=== PATIENT | female | born 1980 | race Caucasian/White ===

== ENCOUNTER 2023-01-23 21:59 | Emergency (ER) | payer OTHER, MEDICAID, SELFPAY ==
[2023-01-23] VITALS (14 sets, daily range): BP systolic 131–145; BP diastolic 80–95; PULSE 65–93; RESP 15–23; TEMP 36.9; O2SAT 93–100; BMI 29.3
--- NOTE | 2023-01-23 22:15 | ECG_ITS ---
The [facility] Test Date: 2023-01-23 Pat Name: TRINO MESSER Department: Room: - Gender: Female Return To Factory Clerk: : 1980 Requested By: [id number] Order Number: [id number] Reading MD: RIGOBERTO NERI Measurements Intervals Chase Rate: 66 P: 33 PA: 118 QRS: 43 QRSD: 90 T: 34 QT: 430 QTc: 443 Interpretive Statements 1100 Sinus rhythm 1108 Marked sinus arrhythmia 2210 Short PA interval 9150 abnormal ECG No previous ECG available for comparison Electronically Signed On 01-24-2023 7:08:10 EDT by RIGOBERTO NERI
--- NOTE | 2023-01-23 22:23 | PC.NURSE ---
pt states that she was working out tonight like she always does and then showered. pt states she got a sudden headache and is the worse headache she has ever had. pt states that she has hx of migraines but this doens't feel like previous ones. pt took 800mg of motrin 30 minutes ago with no relief. pt states normally when she takes the motrin she has relief. pt has nausea and is vomiting on arrival. pt states pain is all over head and burning sensation down spine
--- NOTE | 2023-01-23 22:25 | ED_ITS ---
HPI - Headache General Chief Complaint: Nausea/Vomiting/Diarrhea Stated Complaint: FLU LIKE SYMPTOMS Time Seen by Provider: 01/23/23 22:18 Source: patient Mode of arrival: Wheelchair Limitations: no limitations History of Present Illness HPI Narrative: past history of migraine headaches. Usually headache 5 nights per week. States she treats with flexeril and motrin. She also does see a chiropractor. States typical migraine starts at the back of her neck and then extends across her head. States she had worked out tonight and took a shower. Developed a headache all over and a burning pain down her neck. Not her typical migraine. Has vomited. States this is unlike any past headaches. No fever or extremity weakness. MD elicited complaint: Reports headache Related Data Home Medications Medication Instructions Recorded Confirmed bupropion HCl 150 mg tablet,12 hr 150 mg PO DAILY 01/23/23 01/23/23 sustained-release Previous Rx's Medication Instructions Recorded famotidine 20 mg tablet (Pepcid) 20 mg PO BID #10 tabs 01/26/23 meloxicam 15 mg tablet 15 mg PO DAILY PRN pain #10 tabs 01/26/23 prednisone 20 mg tablet 40 mg PO DAILY 5 days #10 tabs 01/26/23 Allergies Allergy/AdvReac Type Severity Reaction Status Date / Time No Known Drug Allergies Allergy Verified 01/26/23 12:46 Review of Systems ROS Status of ROS 10 or more systems reviewed and unremarkable except as noted in history and below [facility] Social History Smoking status: Never smoker Exam Constitutional Vital Signs, click to edit/add: Last Vital Signs Temp 98.5 F 01/23/23 22:03 Pulse 74 01/24/23 02:10 Resp 17 01/24/23 02:10 BP 119/73 01/24/23 03:28 Pulse Ox 96 01/24/23 03:30 O2 Del Method Room Air 01/23/23 22:03 Common normals: no apparent distress, oriented x3, healthy appearing, alert and well nourished Eye Common normals: PERRL, EOMs intact bilaterally, conjunctivae normal and fundi normal bilaterally (no photosensitivity) Respiratory Common normals: normal respiratory effort, no retractions, no use of accessory muscles and clear to auscultation bilaterally Cardio Common normals: no JVD, regular rate, regular rhythm, S1 normal heart sound and S2 normal heart sound Extremity Common normals: normal to inspection and full ROM Neuro Common normals: oriented x3, CN's II-XII intact bilaterally, moves all extremities, no focal motor deficits and no sensory deficits noted Psych Appearance: grossly normal Course Vital Signs Vital signs: Vital Signs Temperature 98.5 F 01/23/23 22:03 Pulse Rate 93 H 01/23/23 22:03 Respiratory Rate 20 01/23/23 22:03 Blood Pressure 138/92 H 01/23/23 22:03 Pulse Oximetry 98 01/23/23 22:03 Oxygen Delivery Method Room Air 01/23/23 22:03 Temperature 98.5 F 01/23/23 22:03 Pulse Rate 74 01/24/23 02:10 Respiratory Rate 17 01/24/23 02:10 Blood Pressure 119/73 01/24/23 03:28 Pulse Oximetry 96 01/24/23 03:30 Oxygen Delivery Method Room Air 01/23/23 22:03 MDM - Headache MDM Narrative Medical decision making narrative: patient presents with acute onset of headache unlike her typical migraine. CT brain neg. Normal neuro exam 2 LPs performed as above Discussed these findings with carbon cutter Neurologist at [facility] Dr Ochoa who recommended CTA and CT venogram of the brain. Patient headache continues. She has received phenergan, Dilaudid and fentanyl so far for her headache. She is informed of the plan at this point. She has no neuro findings CTA performed and neg. CT venous structures without evidence of large vesel venous occlusion. Patient treated with magnesium and solumedrol. she is now feeling better. States her headache has resolved. Still has mild nausea. Neuro exam remains normal. Discussed with Neurologist Dr Ochoa . She feels the LP was a traumatic tap based on the findings. She feels the patient is most likely going to be ok given the findings of the diagnostic studies and the fact she is feeling better. She did recommend the patient wait until 7AM so a consultation could be performed by the Teleradiologist. Patient and her were informed of this recommendation. She stated she was feeling better and did not want to wait 2 more hours and would rather go home and see her doctor. She is discharged and advised to follow up with her doctor within the next couple of days. She is to return if headache recurs Lab Data Labs: Lab Results 01/23/23 01/24/2301/24/23 Range/Units 22:16 01:15 01:17 WBC 10.0 (4.0-11.0) 10^3/uL RBC 4.04 L (4.20-5.40) 10^6/uL Hgb 12.7 (12.0-16.0) g/dL Hct 38.2 (36.0-48.0) % MCV 94.6 (81.0-99.0) fL MCH 31.4 (26.7-34.0) pg MCHC 33.2 (29.9-35.2) g/dL RDW 12.1 (11.0-15.0) % Plt Count 314 (150-450) 10^3/uL MPV 11.3 (9.5-13.5) fL Neut % (Auto) 45.0 (43.0-75.0) % Lymph % (Auto) 43.5 (20.5-60.0) % Ralls % (Auto) 7.5 (1.7-12.0) % Eos % (Auto) 3.0 (0.9-7.0) % Baso % (Auto) 0.8 (0.2-2.0) % Neut # (Auto) 4.5 (1.4-6.5) 10^3/uL Lymph # (Auto) 4.3 H (1.2-3.8) 10^3/uL Ralls # (Auto) 0.8 (0.3-0.8) 10^3/uL Eos # (Auto) 0.3 (0.0-0.7) 10^3/uL Baso # (Auto) 0.1 (0.0-0.1) 10^3/uL Abs Immat Gran (auto) 0.02 (0.00-0.03) 10^3/uL Imm/Tot Granulo (auto) 0.2 (0.0-0.5) % Sodium 140 (136-145) mmol/L Potassium 3.0 L (3.5-5.1) mmol/L Chloride 106 (98-107) mmol/L Carbon Dioxide 21.1 (21.0-32.0) mmol/L Anion Gap 15.9 BUN 16.0 (7.0-18.0) mg/dL Creatinine 1.08 H (0.55-1.02) mg/dL Est GFR ( Amer) >60 (>=60) Est GFR (Non-Af Amer) 56 L (>=60) BUN/Creatinine Ratio 14.8 Glucose 126 H (74-106) mg/dL Calcium 9.2 (8.5-10.1) mg/dL CSF Tube Number 3 3 CSF Volume 1 0.8 mL CSF Color Red Red (COLORLESS) CSF Clarity Cloudy Cloudy (CLEAR) CSF WBC 288 183 cubic mm CSF Nucleated RBCs 54956 68521 cubic mm CSF Glucose 64 72 H (40-70) mg/dL CSF Total Protein 182 H 162 H (15-45) mg/dL Imaging Data CT scan - head: Radiologist's impression: [email or web address]?file=#[email or web address] [email or web address]?file=#page=2 Find: Highlight all Match case Current View [email or web address]?file=#page=1&zoom=auto,-[phone] Page: of 2 Current View [email or web address]?file=#[email or web address]&zoom=auto,-[phone] [place] [address] Patient Name: TRINO MESSER MRN: [id number] date: 1980 Sex: F Assigned Patient Location: ER Current Patient Location: ER Accession/Order Number: [id number] Exam Date: 01/24/2023 02:30 Report Date: 01/24/2023 03:18 At the request of: MODESTO ARREAGA Procedure: CT angio head CT angio head INDICATION:42 years old; headache TECHNIQUE: CT angiogram of the head was performed. Coronal, sagittal and 3-D reformats were created and reviewed. Ionizing radiation dose reduced via iterative reconstruction/FBP blend and body size kV/mA adjustment. CONTRAST: Omnipaque 350, 100 ml was utilized without complication. COMPARISON: Head CT dated 01/23/2023 at 10:52 PM. FINDINGS: BRAIN: Please see the report of the noncontrast head CT. ANTERIOR CIRCULATION: The intrapetrous, intracavernous, supraclinoid ICA are patent. Intracranial termini are patent. DOTTY patent bilaterally. MCA patent bilaterally. No stenosis or thrombus. No large vessel occlusion. No aneurysm is seen. POSTERIOR CIRCULATION: The V4 segments patent. PICA patent on the right. Basilar artery and basilar tip are patent. SCA patent. OCCUPATIONAL HEALTH TECHNICIAN patent. Distal OCCUPATIONAL HEALTH TECHNICIAN distributions are symmetric. No large vessel occlusion. DEVELOPMENTAL ANOMALIES: None. OTHER: No pathologic enhancing lesions are appreciated. Contrast is seen within the venous structures on the CT angiographic portion of the examination. No evidence of large vessel venous occlusion is seen. Delayed images were performed, however these do not adequately evaluate the intracranial veins. If there is continued suspicion for venous pathology, then a dedicated CT venogram would be appropriate. IMPRESSION: 1. Intracranial vessels demonstrate no stenosis, thrombus, dissection, aneurysm, or large vessel occlusion. If there is continued suspicion for intracranial pathology, recommend further imaging with MRI. Electronically authenticated by: ROSELYN JOHNSON Date: 01/24/2023 03:18 Discharge Plan Discharge Chief Complaint: Nausea/Vomiting/Diarrhea Clinical Impression: Headache Patient Disposition: Home, Self-Care Condition: Good Mode of Transportation: Private Vehicle Prescriptions / Home Meds: No Action bupropion HCl 150 mg tablet sustained-release 12 hr 150 mg PO DAILY meloxicam 15 mg tablet 15 mg PO DAILY PRN (Reason: pain) Qty: 10 0RF famotidine [Pepcid] 20 mg tablet 20 mg PO BID Qty: 10 0RF prednisone 20 mg tablet 40 mg PO DAILY 5 Days Qty: 10 0RF Instructions: Acute Headache (ED) Additional Instructions: follow up with your family doctor in the next couple of days Stand Alone Forms: Portal Instructions Referrals: [facility] [Primary Care Provider] - 1 week Discharge Date/Time: 01/24/23 05:23 Procedures ED Procedure Instructions Procedures Procedures: LP performed. Patient in sitting position. during procedure I noticed there was some blood in the needle. Was able to extend the needle and enter the spinal canal and started collecting pink bloody solution. By tube # 4 there was no thinning out of the blood as all tube were consistently pinky blood solution Decided this was a trauatic tap and redid the procedure 2nd attempt under sterile condition. Entry below the first site. Clear entry into the canal but again collected pink bloody solution. collected about 1.5cc of fluid and discontinued the procedure. Patient tolerated both well.
--- NOTE | 2023-01-23 22:28 | CT_ITS ---
The [address] [address] Patient Name: TRINO MESSER MRN: [id number] date: 1980 Sex: F Assigned Patient Location: ER Current Patient Location: ER Accession/Order Number: [id number] Exam Date: 01/23/2023 22:50 Report Date: 01/23/2023 23:14 At the request of: MODESTO ARREAGA Procedure: CT head/brain wo con EXAM: CT head/brain wo con HISTORY: headache COMPARISON: None. TECHNIQUE: Axial CT scans through the head were obtained without IV contrast administration. Dose reduction techniques were achieved by using: automated exposure control and/or adjustment of mA and /or kV according to patient size and/or use of iterative reconstruction technique. FINDINGS: There is no acute intracranial hemorrhage or abnormal extra-axial fluid collection. No mass effect or midline shift is seen. There is no evidence of large acute territorial infarction. There is no hydrocephalus. To the limit of CT, the posterior fossa appears unremarkable. The calvaria and extra cranial soft tissues are unremarkable. The visualized orbits show no abnormal mass. The visualized paranasal sinuses show no air-fluid level. Mastoid air cells are clear. CT/CT head/brain wo con IMPRESSION: No acute intracranial process. Electronically authenticated by: KWAN EUCEDA Date: 01/23/2023 23:14
[2023-01-23] MEDS: ONDANSETRON PF 4 MG/2 ML VIAL IV (22:37)
[2023-01-23] MEDS: FENTANYL CITRATE/PF 100 MCG/2 ML VIAL IV (22:37)
[2023-01-23 23:03] LABS: Basophils Absolute Auto 0.1 10^3/uL (0.0-0.1); Basophils Percent Auto 0.8 % (0.2-2.0); Eosinophils Absolute Auto 0.3 10^3/uL (0.0-0.7); Hematocrit 38.2 % (36.0-48.0); Hemoglobin 12.7 g/dL (12.0-16.0); Immature Granulocytes Abs Auto 0.02 10^3/uL (0.00-0.03); Immature Granulocytes Pct Auto 0.2 % (0.0-0.5); Lymphocytes Absolute Auto 4.3 10^3/uL (1.2-3.8); Lymphocytes Percent Auto 43.5 % (20.5-60.0); Mean Corpuscular HGB Conc 33.2 g/dL (29.9-35.2); Mean Corpuscular Hemoglobin 31.4 pg (26.7-34.0); Mean Corpuscular Volume 94.6 fL (81.0-99.0); Mean Platelet Volume 11.3 fL (9.5-13.5); Monocytes Absolute Auto 0.8 10^3/uL (0.3-0.8); Monocytes Percent Auto 7.5 % (1.7-12.0); Neutrophils Absolute Auto 4.5 10^3/uL (1.4-6.5); Platelet Count 314 10^3/uL (150-450); Red Blood Count 4.04 10^6/uL (4.20-5.40); Red Cell Distribution Width 12.1 % (11.0-15.0)
[2023-01-23 23:06] LABS: Anion Gap 15.9; BUN Creatinine Ratio 14.8; Calcium 9.2 mg/dL (8.5-10.1); Carbon Dioxide 21.1 mmol/L (21.0-32.0); Chloride 106 mmol/L (98-107); Estimated GFR (African America >60 (>=60); Estimated GFR (Non-African Ame 56 (>=60); Glucose 126 mg/dL (74-106); Sodium 140 mmol/L (136-145)
[2023-01-23] MEDS: HYDROMORPHONE HCL 1 MG/ML CARTRIDGE IVP (23:53)
[2023-01-24] VITALS (16 sets, daily range): BP systolic 119; BP diastolic 73; PULSE 65–94; RESP 15–34; O2SAT 94–100
[2023-01-24] MEDS: ONDANSETRON PF 4 MG/2 ML VIAL IV (01:00)
[2023-01-24] MEDS: PROMETHAZINE HCL 25 MG/ML VIAL 12.5 MG IV ×2 (01:15→03:43)
--- NOTE | 2023-01-24 01:30 | CT_ITS ---
The [address] [address] Patient Name: TRINO MESSER MRN: [id number] date: 1980 Sex: F Assigned Patient Location: ER Current Patient Location: Accession/Order Number: [id number] Exam Date: 01/24/2023 02:30 Report Date: 01/24/2023 03:18 At the request of: MODESTO ARREAGA Procedure: CT angio head CT angio head INDICATION:42 years old; headache TECHNIQUE: CT angiogram of the head was performed. Coronal, sagittal and 3-D reformats were created and reviewed. Ionizing radiation dose reduced via iterative reconstruction/FBP blend and body size kV/mA adjustment. CONTRAST: Omnipaque 350, 100 ml was utilized without complication. COMPARISON: Head CT dated 01/23/2023 at 10:52 PM. FINDINGS: BRAIN: Please see the report of the noncontrast head CT. ANTERIOR CIRCULATION: The intrapetrous, intracavernous, supraclinoid ICA are patent. Intracranial termini are patent. DOTTY patent bilaterally. MCA patent bilaterally. No stenosis or thrombus. No large vessel occlusion. No aneurysm is seen. POSTERIOR CIRCULATION: The V4 segments patent. PICA patent on the right. Basilar artery and basilar tip are patent. SCA patent. TIMBER APPRAISER patent. Distal TIMBER APPRAISER distributions are symmetric. No large vessel occlusion. DEVELOPMENTAL ANOMALIES: None. OTHER: No pathologic enhancing lesions are appreciated. Contrast is seen within the venous structures on the CT angiographic portion of the examination. No evidence of large vessel venous occlusion is seen. Delayed images were performed, however these do not adequately evaluate the intracranial veins. If there is continued suspicion for venous pathology, then a dedicated CT venogram would be appropriate. CT/CT angio head IMPRESSION: 1. Intracranial vessels demonstrate no stenosis, thrombus, dissection, aneurysm, or large vessel occlusion. If there is continued suspicion for intracranial pathology, recommend further imaging with MRI. Electronically authenticated by: ROSELYN JOHNSON Date: 01/24/2023 03:18
[2023-01-24] MEDS: HYDROMORPHONE HCL 0.5 MG/0.5 ML SYRINGE 1 MG IV (01:59)
[2023-01-24 03:05] LABS: Glucose CSF 72 mg/dL (40-70); Total Protein CSF 162 mg/dL (15-45)
[2023-01-24 03:05] LABS: Glucose CSF 64 mg/dL (40-70); Total Protein CSF 182 mg/dL (15-45)
[2023-01-24] MEDS: MAGNESIUM SULFATE IN WATER 2 GM/50 ML PREMIX IV (03:43)
[2023-01-24] MEDS: METHYLPREDNISOLONE SOD SUCC PF 125 MG/2 ML VIAL IVP (03:43)
[2023-01-24 04:14] LABS: CSF Clarity CLOUDY (CLEAR); CSF Color RED (COLORLESS); CSF Total Volume 1 mL; CSF Tube # 3
[2023-01-24 04:15] LABS: Red Blood Cell CSF Side 1 34740; White Blood Cell CSF 288 cubic mm; White Blood Cell CSF Side 1 270; White Blood Cell CSF Side 2 250
[2023-01-24 04:16] LABS: Red Blood Cell CSF 37605 cubic mm; Red Blood Cell CSF Side 2 32950
[2023-01-24 04:26] LABS: CSF Clarity CLOUDY (CLEAR); CSF Color RED (COLORLESS); CSF Tube # 3
[2023-01-24 04:27] LABS: CSF Total Volume 0.8 mL; Red Blood Cell CSF 30072 cubic mm; Red Blood Cell CSF Side 2 26320; White Blood Cell CSF 183 cubic mm; White Blood Cell CSF Side 1 170; White Blood Cell CSF Side 2 160
== END 2023-01-24 05:23 | disposition home or self-care (01) ==
PROVIDERS: Emergency Provider Internal Medicine
DX: R51.9 Headache, unspecified (principal)
CPT/HCPCS: 36415; 70450; 70496; 80048; 82945; 84157; 85025; 87070; 89050; 93005; 96374; 96375; 99285; J1170; J2930; Q9967

== ENCOUNTER 2023-01-26 12:42 | Emergency (ER) | payer OTHER, MEDICAID, SELFPAY ==
[2023-01-26 12:46] VITALS: BP 121/73; PULSE 67; RESP 18; TEMP 36.5; O2SAT 100; BMI 31.2
[2023-01-26] MEDS: METHYLPREDNISOLONE SOD SUCC PF 125 MG/2 ML VIAL IVP (13:54)
[2023-01-26] MEDS: PROCHLORPERAZINE 10 MG/2 ML VIAL 5 MG IV (13:54)
[2023-01-26] MEDS: FAMOTIDINE/PF 20 MG/2 ML VIAL IV (13:55)
[2023-01-26] MEDS: ORPHENADRINE 60 MG/ 2 ML VIAL IV (13:55)
[2023-01-26 14:03] LABS: Basophils Absolute Auto 0.1 10^3/uL (0.0-0.1); Eosinophils Absolute Auto 0.2 10^3/uL (0.0-0.7); Eosinophils Percent Auto 2.4 % (0.9-7.0); Hematocrit 36.9 % (36.0-48.0); Hemoglobin 12.6 g/dL (12.0-16.0); Immature Granulocytes Abs Auto 0.01 10^3/uL (0.00-0.03); Immature Granulocytes Pct Auto 0.2 % (0.0-0.5); Lymphocytes Absolute Auto 2.2 10^3/uL (1.2-3.8); Lymphocytes Percent Auto 35.1 % (20.5-60.0); Mean Corpuscular HGB Conc 34.1 g/dL (29.9-35.2); Mean Corpuscular Hemoglobin 31.3 pg (26.7-34.0); Mean Corpuscular Volume 91.8 fL (81.0-99.0); Mean Platelet Volume 11.2 fL (9.5-13.5); Monocytes Absolute Auto 0.3 10^3/uL (0.3-0.8); Monocytes Percent Auto 5.4 % (1.7-12.0); Neutrophils Absolute Auto 3.5 10^3/uL (1.4-6.5); Neutrophils Percent Auto 55.9 % (43.0-75.0); Platelet Count 260 10^3/uL (150-450); Red Blood Count 4.02 10^6/uL (4.20-5.40); Red Cell Distribution Width 11.9 % (11.0-15.0); White Blood Count 6.3 10^3/uL (4.0-11.0)
[2023-01-26 14:11] LABS: HCG Qualitative NEGATIVE (NEGATIVE)
[2023-01-26 14:25] LABS: Alanine Aminotransferase 21 U/L (14-59); Albumin Globulin Ratio 0.9; Albumin Level 3.5 g/dL (3.4-5.0); Alkaline Phosphatase 43 U/L (46-116); Aspartate Amino Transferase 10 U/L (15-37); BUN Creatinine Ratio 15.6; Bilirubin Total 0.3 mg/dL (0.2-1.0); Calcium 9.3 mg/dL (8.5-10.1); Carbon Dioxide 20.9 mmol/L (21.0-32.0); Chloride 107 mmol/L (98-107); Estimated GFR (African America >60 (>=60); Estimated GFR (Non-African Ame >60 (>=60); Globulin 3.7 g/dL; Glucose 84 mg/dL (74-106); Potassium 3.9 mmol/L (3.5-5.1); Sodium 140 mmol/L (136-145); Total Protein 7.2 g/dL (6.4-8.2)
--- NOTE | 2023-01-26 17:47 | ED.GENADUL1 ---
HPI - General Adult General Chief complaint: Headache Stated complaint: HEADACHE Time Seen by Provider: 01/26/23 13:05 Source: patient and family Mode of arrival: walk-in Limitations: no limitations History of Present Illness HPI narrative: The patient being evaluated for headache for the second time within 4 days she was evaluated here almost 3 days ago when she had extensive work-up of CT angio of the head as well as lumbar puncture the patient is coming to the ER after she still have neck pain The patient when pointing to the headache is usually at the mastoid area bilaterally s,no fever no chills no other complaints The patient was taking Flexeril at home and ibuprofen with no improvement Related Data Home Medications Medication Instructions Recorded Confirmed bupropion HCl 150 mg tablet,12 hr 150 mg PO DAILY 01/23/23 01/23/23 sustained-release Previous Rx's Medication Instructions Recorded famotidine 20 mg tablet (Pepcid) 20 mg PO BID #10 tabs 01/26/23 meloxicam 15 mg tablet 15 mg PO DAILY PRN pain #10 tabs 01/26/23 prednisone 20 mg tablet 40 mg PO DAILY 5 days #10 tabs 01/26/23 Allergies Allergy/AdvReac Type Severity Reaction Status Date / Time No Known Drug Allergies Allergy Verified 01/26/23 12:46 Review of Systems ROS Status of ROS 10 or more systems reviewed and unremarkable except as noted in history and below [facility] Social History Smoking status: Never smoker Exam Narrative Exam Narrative: Nurses notes and vital signs reviewed and patient is not hypoxic. General: Well-appearing and in no apparent distress. Skin: Warm, dry, no pallor noted. No rash. Head: Normocephalic, atraumatic. Neck: Supple, the patient have tenderness only on palpation of the bilateral mastoid area and paraspinal muscle level at the upper cervical, no intervertebral line tenderness Eye: Pupils are equal, round and EOMI. No scleral icterus. Ears, Nose, Mouth, and Throat: TM are clear, no nasal mucosal hypertrophy. Oral mucosa is moist, no posterior oropharynx erythema, uvula is mid-line Cardiovascular: Regular Rate and Rhythm without murmur, gallop or rub. Respiratory: No accessory muscle use or respiratory distress. Lungs are clear to auscultation, no wheezing, rales or rhonchi Chest Wall: no tenderness Back: No midline thoracic or lumbar vertebral tenderness. No CVA tenderness Musculoskeletal: normal ROM, no calf or popliteal tenderness, no lower extremity edema/swelling GI: Abdomen is soft, non-distended. Normal bowel sounds. No masses appreciated. No tenderness to palpation. No rebound, guarding, or rigidity noted. Neurological: A&O x4. No cranial nerve dysfunction observed. No truncal ataxia. Moves all extremities. Sensation intact. Psychiatric: Cooperative and interactive. Normal mood and affect. Constitutional Vital Signs, click to edit/add: Last Vital Signs Temp 97.7 F 01/26/23 12:46 Pulse 67 01/26/23 12:46 Resp 18 01/26/23 12:46 BP 121/73 01/26/23 12:46 Pulse Ox 100 01/26/23 12:46 O2 Del Method Room Air 01/26/23 12:46 Course Vital Signs Vital signs: Vital Signs Temperature 97.7 F 01/26/23 12:46 Pulse Rate 67 01/26/23 12:46 Respiratory Rate 18 01/26/23 12:46 Blood Pressure 121/73 01/26/23 12:46 Pulse Oximetry 100 01/26/23 12:46 Oxygen Delivery Method Room Air 01/26/23 12:46 Temperature 97.7 F 01/26/23 12:46 Pulse Rate 67 01/26/23 12:46 Respiratory Rate 18 01/26/23 12:46 Blood Pressure 121/73 01/26/23 12:46 Pulse Oximetry 100 01/26/23 12:46 Oxygen Delivery Method Room Air 01/26/23 12:46 Medical Decision Making [facility] Narrative Medical decision making narrative: The patient complete examination including neck exam showed no stiffness the patient have tenderness though CBC and chemistry showed no acute pathology and the patient was feeling much better after being treated with Solu-Medrol, the patient coming to the ER with possible inflammatory neck spasm right now she was discharged home after feeling better with prednisone as well as Norflex and Mobic and Pepcid with physiotherapy instructed for her neck The patient to come back to the ER in case of any fever chills or any other complaints The patient is to follow up with primary care physician in next 2-3 days or to return to the emergency department should any of the signs or symptoms worsen or new symptoms develop. The patient agrees with the following Diagnosis and Treatment plan and the patient will be discharged home. It was noted that the patient had no alarming symptoms with her headache Lab Data Labs: Lab Results 01/26/23 Range/Units 13:52 WBC 6.3 (4.0-11.0) 10^3/uL RBC 4.02 L (4.20-5.40) 10^6/uL Hgb 12.6 (12.0-16.0) g/dL Hct 36.9 (36.0-48.0) % MCV 91.8 (81.0-99.0) fL MCH 31.3 (26.7-34.0) pg MCHC 34.1 (29.9-35.2) g/dL RDW 11.9 (11.0-15.0) % Plt Count 260 (150-450) 10^3/uL MPV 11.2 (9.5-13.5) fL Neut % (Auto) 55.9 (43.0-75.0) % Lymph % (Auto) 35.1 (20.5-60.0) % Carver % (Auto) 5.4 (1.7-12.0) % Eos % (Auto) 2.4 (0.9-7.0) % Baso % (Auto) 1.0 (0.2-2.0) % Neut # (Auto) 3.5 (1.4-6.5) 10^3/uL Lymph # (Auto) 2.2 (1.2-3.8) 10^3/uL Carver # (Auto) 0.3 (0.3-0.8) 10^3/uL Eos # (Auto) 0.2 (0.0-0.7) 10^3/uL Baso # (Auto) 0.1 (0.0-0.1) 10^3/uL Abs Immat Gran (auto) 0.01 (0.00-0.03) 10^3/uL Imm/Tot Granulo (auto) 0.2 (0.0-0.5) % Sodium 140 (136-145) mmol/L Potassium 3.9 (3.5-5.1) mmol/L Chloride 107 (98-107) mmol/L Carbon Dioxide 20.9 L (21.0-32.0) mmol/L Anion Gap 16.0 BUN 15.0 (7.0-18.0) mg/dL Creatinine 0.96 (0.55-1.02) mg/dL Est GFR ( Amer) >60 (>=60) Est GFR (Non-Af Amer) >60 (>=60) BUN/Creatinine Ratio 15.6 Glucose 84 (74-106) mg/dL Calcium 9.3 (8.5-10.1) mg/dL Total Bilirubin 0.3 (0.2-1.0) mg/dL AST 10 L (15-37) U/L ALT 21 (14-59) U/L Alkaline Phosphatase 43 L (46-116) U/L Total Protein 7.2 (6.4-8.2) g/dL Albumin 3.5 (3.4-5.0) g/dL Globulin 3.7 g/dL Albumin/Globulin Ratio 0.9 Serum HCG, Qual Negative (NEGATIVE) Discharge Plan Discharge Chief Complaint: Headache Clinical Impression: Headache Patient Disposition: Home, Self-Care Time of Disposition Decision: 15:00 Condition: Good Mode of Transportation: Private Vehicle Prescriptions / Home Meds: New meloxicam 15 mg tablet 15 mg PO DAILY PRN (Reason: pain) Qty: 10 0RF famotidine [Pepcid] 20 mg tablet 20 mg PO BID Qty: 10 0RF prednisone 20 mg tablet 40 mg PO DAILY 5 Days Qty: 10 0RF No Action bupropion HCl 150 mg tablet sustained-release 12 hr 150 mg PO DAILY Instructions: Acute Headache (ED) Stand Alone Forms: Portal Instructions Referrals: [facility] [Primary Care Provider] - 1 week Discharge Date/Time: 01/26/23 15:12
== END 2023-01-26 15:12 | disposition home or self-care (01) ==
PROVIDERS: Emergency Provider Emergency Medicine
DX: R51.9 Headache, unspecified (principal)
CPT/HCPCS: 36415; 80053; 84703; 85025; 85610; 96374; 96375; 99284; J2930